=== PATIENT | male | born 1970 | race African-American/Black ===

== ENCOUNTER 2016-12-09 18:01 | Emergency (ER) | payer OTHER ==
[2016-12-09] MEDS ORDERED: ASPIRIN 81 MG CHEW TAB ONE (18:13)
== END 2016-12-09 22:51 | disposition home or self-care (01) ==
LOC: ER 18:01
DX: R07.9 Chest pain, unspecified (principal)
CPT/HCPCS: 36415; 71010; 80053; 82550; 83735; 84484; 85025; 85610; 85730; 93005